=== PATIENT | male | born 1990 | race Caucasian/White ===

== ENCOUNTER 2016-08-01 20:31 | Emergency (ER) | payer BC ==
--- NOTE | 2016-08-01 21:29 | ED ---
Laceration/Wound HPI - HPI Summary HPI Summary: l26M presents with left hand laceration today from knife. He states he was cutting a piece of pipe with his pocket knife when it slipped. He has full ROM of his hand. He denies any numbness or tingling. He is right handed. His last tetanus was 4 years ago. - History of Current Complaint Stated Complaint: HAND LAC Time Seen by Provider: 08/01/16 21:01 Pain Intensity: 3 - Allergy/Home Medications Allergies/Adverse Reactions: Allergies Allergy/AdvReac Type Severity Reaction Status Date / Time No Known Allergies Allergy Verified 02/01/16 20:31 PMH/Surg Hx/FS Hx/Imm Hx Endocrine/Hematology History: Denies: Hx Anticoagulant Therapy Cardiovascular History: Denies: Hx Hypertension Infectious Disease History: No Infectious Disease History: Denies: Traveled Outside the [place] in Last 30 Days - Family History Known Family History: Positive: None Negative: Cardiac Disease - Social History Alcohol Use: None Substance Use Type: Reports: None Smoking Status (MU): Never Smoked Tobacco Review of Systems Negative: Fever Negative: Chest Pain Negative: Shortness Of Breath Positive: Other - laceration left hand All Other Systems Reviewed And Are Negative: Yes Physical Exam Triage Information Reviewed: Yes Vital Signs On Initial Exam: Initial Vitals Temp Pulse Resp BP Pulse Ox 96.6 F 53 18 126/73 100 08/01/16 20:36 08/01/16 20:36 08/01/16 20:36 08/01/16 20:36 08/01/16 20:36 Vital Signs Reviewed: Yes Appearance: Positive: Well-Appearing Skin: Positive: Warm, Dry, Other - 4 cm laceration on dorsum of hand near MCP of left index finger Head/Face: Positive: Normal Head/Face Inspection Eyes: Positive: Normal, Conjunctiva Clear Respiratory/Lung Sounds: Positive: Clear to Auscultation, Breath Sounds Present Cardiovascular: Positive: Normal, RRR Procedures - Laceration/Wound Repair 1 Location: Other - left hand Description: Linear Anesthesia: Local, 1.0% Length, Depth and Shape: 4 cm length and 1/4 cm depth Betadine Prep?: Yes Irrigated w/ Saline (ccs): 1,000 Laceration/Wound Explored: clean, no foreign body removed Closure: Single Layer Suture Type: Prolene - 4-0 Number of Sutures: 4 Layer Closure?: No Sterile Dressing Applied?: No Diagnostics - Vital Signs Vital Signs Temp Pulse Resp BP Pulse Ox 08/01/16 20:36 96.6 F 53 18 126/73 100 - Laboratory Lab Statement: Any lab studies that have been ordered have been reviewed, and results considered in the medical decision making process. Laceration Repair Course/Dx - Course Course Of Treatment: 26M presents with laceration of left hand. has full ROM of his hand. tetanus is up to date. laceration is 4 cm long. cleaned and placed 4 sutures. told to keep wrapped and avoid moving hand for at least 48 hours. patient understands and agrees with plan - Differential Dx Differental Diagnoses: Abrasion, Avulsion, Laceration - Clinical Impression Provider Diagnoses: Laceration of left hand Discharge - Discharge Plan Condition: Good Disposition: HOME Patient Education Materials: Care For Your Stitches (ED) Referrals: Chris Templeton MD [Primary Care Provider] - Additional Instructions: Keep area wrapped, clean and dry, change dressing once a day for next [address] band aid on area after 48 hours Take Tylenol or ibuprofen for pain every 6 hours Return to ED, urgent care, or primary for suture removal in 10-14 days Return to ED if develop signs of infection such as fever, spreading redness, or pus formation Images - Images Hands: 1 - 4 cm laceration
== END 2016-08-01 22:56 | disposition home or self-care (01) ==
LOC: ED 20:31
DX: S61.412A Laceration without foreign body of left hand, initial encounter (principal); W26.0XXA Contact with knife, initial encounter; Y93.89 Activity, other specified; Y92.9 Unspecified place or not applicable
CPT/HCPCS: 12002; 99281